=== PATIENT | male | born 1995 ===

== ENCOUNTER 2023-08-07 19:46 | Emergency (ER) | payer OTHER | END 2023-08-07 20:57 | disposition home or self-care (01) | LOC: DL.ED 19:46 | DX: J02.8 Acute pharyngitis due to other specified organisms (principal); J06.9 Acute upper respiratory infection, unspecified; H61.23 Impacted cerumen, bilateral | CPT/HCPCS: 87081; 87430; 99282; 99283 ==

== ENCOUNTER 2024-06-18 15:41 | Emergency (ER) | payer OTHER | END 2024-06-18 17:00 | disposition home or self-care (01) | LOC: DL.ED 15:41 | DX: S99.921A Unspecified injury of right foot, initial encounter (principal); Z86.16 Personal history of COVID-19; W50.0XXA Accidental hit or strike by another person, initial encounter; Y93.67 Activity, basketball | CPT/HCPCS: 73660-T5; 99282; 99283 ==